=== PATIENT | male | born 1980 | race African-American/Black ===

== ENCOUNTER 2017-08-01 13:18 | Emergency (ER) | payer MEDICAID ==
[~2017-08-01] VITALS: Ht 157.5 cm; Wt 70.5 kg
[~2017-08-01 13:18] MED LIST: ALBU8.5H8 IH; PRED10 PO
[2017-08-01 14:07] LABS: GLUCOSE,POINT OF CARE 93 MG/DL (70-110)
[2017-08-01] MEDS ORDERED: SODIUM CHLORIDE 0.9% 1,000 ML IV ONE ×2 (14:15→15:45)
[2017-08-01 14:24] LABS: BASOPHILS # (AUTO) 0.03 K/uL (0.00-0.20); BASOPHILS % (AUTO) 0.5 % (0.0-2.0); EOSINOPHILS # (AUTO) 0.32 K/uL (0.00-0.70); EOSINOPHILS % (AUTO) 5.21 % (1.0-6.0); HEMATOCRIT 43.5 % (41-53); LYMPHOCYTES # (AUTO) 2.2 K/uL (1.0-4.8); LYMPHOCYTES % (AUTO) 35.3 % (22.0-44.0); MEAN CORPUSCULAR HEMOGLOBIN 28.3 pg (26.0-34.0); MEAN CORPUSCULAR HGB CONC 32.2 G/dL (31.0-37.0); MEAN CORPUSCULAR VOLUME 88 fL (80-100); MONOCYTES # (AUTO) 0.8 K/uL (0.1-1.0); MONOCYTES % (AUTO) 12.7 % (2.0-9.0); NEUTROPHILS # (AUTO) 2.8 K/uL (1.8-7.7); NEUTROPHILS % (AUTO) 46.4 % (40.0-70.0); PLATELET COUNT (AUTO) 138 K/uL (150-450); RED BLOOD CELL COUNT(AUTO) 4.96 MIL/uL (4.50-5.90); RED CELL DISTRIBUTION WIDTH 14.3 % (11.5-14.5)
[2017-08-01 14:35] LABS: ANION GAP 1 mmol/L (8-16); CALCIUM, TOTAL 8.4 mg/dL (8.8-10.5); CARBON DIOXIDE 33 mmol/L (22-29); CHLORIDE 100 mmol/L (98-107); CREATININE 1.09 mg/dL (0.60-1.30); GLOMERULAR FILTR. RATE CALC > 60 mL/min (>60); GLUCOSE,RANDOM 95 mg/dL (70-110); POTASSIUM 4.1 mmol/L (3.5-5.1); SODIUM SERUM 134 mmol/L (136-145); UREA NITROGEN, BLOOD 10 mg/dL (7-18)
[2017-08-01 14:40] LABS: ALANINE AMINOTRANSFERASE 33 U/L (12-78); ALBUMIN 3.6 g/dL (3.4-5.0); ALKALINE PHOSPHATASE 100 U/L (46-116); ASPARTATE AMINOTRANSFERASE 33 U/L (15-37); BILIRUBIN,TOTAL 0.3 mg/dL (0.1-1.0); LIPASE 151 U/L (73-393); TOTAL PROTEIN, SERUM 7.4 g/dL (6.4-8.2)
[2017-08-01 14:47] LABS: INFLUENZA TYPE A NEGATIVE FOR TYPE A (NEGATIVE); INFLUENZA TYPE B POSITIVE FOR TYPE B (NEGATIVE)
[2017-08-01] MEDS ORDERED: ALBUTEROL SULFATE 2.5 MG/0.5 ML NEB SOLUTION NEB ONE (15:35)
[2017-08-01 16:21] LABS: APPEARANCE,URINE CLEAR (CLEAR); BILIRUBIN,URINE NEGATIVE (NEGATIVE); GLUCOSE, URINE (UA) NEGATIVE (NEGATIVE); KETONES,URINE NEGATIVE (NEGATIVE); LEUKOCYTE ESTERASE ,URINE NEGATIVE (NEGATIVE); NITRATE,URINE NEGATIVE (NEGATIVE); OCCULT BLOOD,URINE NEGATIVE (NEGATIVE); PROTEIN,URINE NEGATIVE (NEGATIVE); UROBILINOGEN,URINE 0.2 mg/dL (<=1.0)
[2017-08-01 16:25] LABS: BACTERIA,URINE Rare /HPF (None Seen); RBC,URINE None Seen /HPF (0-2); SQUAMOUS EPITHELIAL CELL,UR Rare /LPF (None Seen); WBC,URINE 0-2 /HPF (0-5)
[2017-08-01 16:40] VITALS: BP 126/74
[2017-08-01] MEDS ORDERED: PredniSONE 5 MG/5 ML SOLUTION UDCUP PO ONE (16:45)
== END 2017-08-01 16:56 | disposition home or self-care (01) ==
LOC: EMS 13:19
DX: J11.1 Influenza due to unidentified influenza virus with other respiratory manifestations (principal); J45.909 Unspecified asthma, uncomplicated; F17.210 Nicotine dependence, cigarettes, uncomplicated; F12.90 Cannabis use, unspecified, uncomplicated; Z91.010 Allergy to peanuts
CPT/HCPCS: 36415; 70450; 71046; 80053; 81001; 82962; 83690; 84484; 85025; 87804; 93005; 94640; 96360; 99285; J7030; J7512; J7613

== ENCOUNTER 2017-08-04 09:22 | Emergency (ER) | payer MEDICAID ==
[~2017-08-04] VITALS: Ht 157.5 cm; Wt 70.5 kg
[2017-08-04] MEDS ORDERED: ALBU8.5H8 IH (09:53)
[2017-08-04 11:14] VITALS: BP 118/72
== END 2017-08-04 11:19 | disposition home or self-care (01) ==
LOC: EMS 09:25
DX: J20.9 Acute bronchitis, unspecified (principal); J45.909 Unspecified asthma, uncomplicated; Z88.0 Allergy status to penicillin; F17.210 Nicotine dependence, cigarettes, uncomplicated; Z91.010 Allergy to peanuts
CPT/HCPCS: 99283

== ENCOUNTER → 2025-06-02 | Emergency (ER) | payer MEDICAID, OTHER ==
[~2025-06-02] VITALS: Ht 157.5 cm; Wt 81.8 kg
[~2025-06-02] MED LIST changes: -PRED10 PO
[2025-06-02 09:10] VITALS: TEMP 97.9
[2025-06-02 09:39] LABS: PLATELET COUNT (AUTO) 185 K/uL (150-450); RED BLOOD CELL COUNT(AUTO) 4.94 MIL/uL (4.50-5.90); RED CELL DISTRIBUTION WIDTH 14.0 % (11.5-14.5); WHITE BLOOD COUNT (AUTO) 7.9 K/uL (4.5-11.0)
[2025-06-02 09:49] LABS: CALCIUM, TOTAL 8.4 mg/dL (8.8-10.5); CREATININE 1.15 mg/dL (0.60-1.30); GLOMERULAR FILTR. RATE CALC > 60 mL/min (>60); GLUCOSE,RANDOM 101 mg/dL (70-110); SODIUM SERUM 138 mmol/L (136-145); UREA NITROGEN, BLOOD 17 mg/dL (7-18)
[2025-06-02 10:34] VITALS: BP 112/0; PULSE 85; RESP 16; O2SAT 99
[2025-06-02] MEDS: ASPIRIN 81 MG CHEWABLE TABLET PO ONE (10:46)
== END | disposition still patient (30) ==
LOC: EMS 09:09
DX: R29.810 Facial weakness (principal); R53.1 Weakness; J45.909 Unspecified asthma, uncomplicated; F17.210 Nicotine dependence, cigarettes, uncomplicated; F15.90 Other stimulant use, unspecified, uncomplicated; Z98.890 Other specified postprocedural states; Z79.899 Other long term (current) drug therapy; Z00.00 Encounter for general adult medical examination without abnormal findings; Z88.0 Allergy status to penicillin; Z91.010 Allergy to peanuts; Z86.73 Personal history of transient ischemic attack (TIA), and cerebral infarction without residual deficits
CPT/HCPCS: 80048; 85025; 93005; 99284